=== PATIENT | female | born 1990 | race Caucasian/White ===

== ENCOUNTER 2024-04-06 15:33 | Inpatient (IN) | payer OTHER, MEDICAID ==
[~2024-04-06] VITALS: Ht 160 cm; Wt 77.3 kg
[2024-04-07] VITALS (51 sets, daily range): BP systolic 101–219; BP diastolic 50–149; PULSE 75–123; TEMP 97.6–98.9
--- NOTE | 2024-04-07 07:15 | NUR ---
PT AMBULATORY TO UNIT WITH /FOB. ORIENTED TO LABOR ROOM AND PLAN OF CARE. EFM TRACING CATEGORY 1 UPON ARRIVAL, NO CTX. PT DENIES HAVING CTX, REPORTS POSITIVE MOVEMENT AND DENIES LOF/VAGINAL BLEEDING. MATERNAL VSS. PT APPEARS ANXIOUS, ELEVATED HR UPON ARRIVAL. ALL CONSENTS REVIEWED.
[2024-04-07] MEDS ORDERED: LR & Oxytocin 500 ML IV SCH (07:45)
[2024-04-07] MEDS ORDERED: LR 1,000 ML IV SCH (07:45)
[2024-04-07] MEDS ORDERED: ceFAZolin 2 G in Water For Injection,Sterile 20 ML IV ONE (07:45)
[2024-04-07] MEDS ORDERED: PROFERRIN ES12 MG (07:51)
[2024-04-07] MEDS ORDERED: PRENATAL (07:51)
[2024-04-07 08:10] LABS: BASO # 0.1 K/mm3 (0.0-0.2); BASO % 0.6 % (0.0-2.0); EOS # 0.1 K/mm3 (0.0-0.7); EOS % 0.9 % (0.0-4.0); GRAN # 5.4 K/mm3 (1.4-6.5); GRAN % 66.5 % (42.2-75.2); HEMATOCRIT 29.3 % (37.0-47.0); HEMOGLOBIN 9.5 g/dl (12.5-16.0); LYMPH # 2.1 K/mm3 (1.2-3.4); LYMPH % 26.2 % (20.0-51.0); MEAN CELL VOLUME 96 fl (80.0-100.0); MEAN CORPUSCULAR HEMOGLOBIN 31 pg (27-31); MEAN CORPUSCULAR HGB CONC 32 g/dl (33.0-37.0); MEAN PLATELET VOLUME 10.7 fl (7.4-10.4); MONO # 0.4 K/mm3 (0.1-0.6); MONO % 5.2 % (1.7-9.3); PLATELET COUNT 271 K/mm3 (130-400); RED BLOOD COUNT 3.06 M/mm3 (4.10-5.30); REDCELL DISTRIBUTION WIDTH-CV 14.5 % (11.5-14.5)
--- NOTE | 2024-04-07 09:00 | NUR ---
DR SOLOMON AT BEDSIDE ROUNDING ON PT. DISCUSSES POC. SVE /-2. AROM WITH CLEAR FLUID @ 0900. PT TOLERATED EXAM WELL. CATEGORY 1 EFM TRACING THROUGHOUT. MATERNAL VSS.
--- NOTE | 2024-04-07 09:24 | NUR ---
PT TO SITTING POSITION ON EDGE OF BED FOR EPIDURAL PLACEMENT. DYLAN RASMUSSEN AT BEDSIDE DISCUSSING RISKS, ALL CONSENTS SIGNED. LR BOLUS INFUSING. MATERNAL VSS. ELEVATED HR DUE TO ANXIETY. CATEGORY 1 EFM TRACING PRIOR TO SITTING UP. DIFFICULTY TRACING EFM DUE TO MATERNAL POSITIONING THROUGHOUT PROCEDURE. 0924: SINGLE SHOT PER VALERY RICHARDSON. PT TOLERATED PROCEDURE WELL.
[2024-04-07] MEDS ORDERED: ROPivacaine PF 0.2% 200 ML IV ONE (09:41)
[2024-04-07] MEDS ORDERED: diphenhydrAMINE 50 MG/ML 1 ML VIAL IV PRN (09:45)
[2024-04-07] MEDS ORDERED: Naloxone 0.4 MG/ML VIAL IV PRN ×2 (09:45→19:00)
[2024-04-07] MEDS ORDERED: ePHEDrine 50 MG/10 ML VIAL IV PRN (09:45)
[2024-04-07] MEDS ORDERED: Ondansetron 4 MG/2 ML VIAL IV PRN (09:45)
[2024-04-07] MEDS ORDERED: diphenhydrAMINE 25 MG CAP PO PRN (09:45)
--- NOTE | 2024-04-07 14:21 | NUR ---
PITOCIN CURRENTLY OFF, OXYGEN VIA MASK @ 10L ON PT. FREQUENT POSITION CHANGES DUE TO RECURRENT LATE DECELERATIONS AND TACHYCARDIA. SVE CURRENTLY /-2, BALLOTABLE. BLOODY SHOW. SEE PHYSICIAN NOTIFICATIONS AND ORDERS.
--- NOTE | 2024-04-07 14:43 | NUR ---
EFM TRACING CATEGORY 1 FOLLOWING PITOCIN BREAK AND MATERNAL OXYGEN VIA MASK. CALL TO TO UPDATE ON PT STATUS. SEE PHYSICIAN ORDERS.
[2024-04-07] MEDS ORDERED: ceFAZolin 1 G in Water For Injection,Sterile 10 ML IV SCH (15:45)
--- NOTE | 2024-04-07 17:03 | NUR ---
AT BEDSIDE. SVE /-2. WELL APPLIED. BLOODY SHOW WITH EXAM. PT TOLERATED PROCEDURE WELL. EFM TRACING CATEGORY 1.
--- NOTE | 2024-04-07 18:00 | NUR ---
1800: AT BEDSIDE. SVE COMPLETE, PT FEELS URGE TO PUSH. ROOM PREPARED FOR DELIVERY, ALL APPROPRIATE STAFF NOTIFIED. 1806: OF VIABLE MALE INFANT AT THIS TIME PER . DOUBLE NUCHAL. STRONG CRY NOTED AT DELIVERY. CARE OF ASSUMED BY AGA ELAINE. UPON PULSATION, CORD CLAMPED X2 AND CUT BY FOB. INFANT PLACED ON MATERNAL ABDOMEN. 1808: OF INTACT PLACENTA. PITOCIN BOLUS INFUSING. MATERNAL VITAL SIGNS STABLE. BEGINS REPAIR OF SECOND DEGREE PERINEAL LACERATION. PT TOLERATING REPAIR WELL. VORB FOR CORD GASES AND PLACENTA TO GO TO PATHOLOGY FOR DX: CHORIO. REPORT TO ILDEFONSO Hodgson RN AND ALL ABOVE INFORMATION REVIEWED. ILDEFONSO MARCANO TO CONTINUE WITH ROUTINES.
--- NOTE | 2024-04-07 18:45 | NUR ---
PT WITH ELEVATED BP AT THIS TIME. PT RESTING IN BED HOLDING , ARM BENT WHEN BLOOD PRESSURE WAS OBTAINED. BLOOD PRESSURE CUFF READJUSTED AND RETAKEN WITH AN IMPROVED READING. DR SOLOMON AWARE.
[2024-04-07] MEDS ORDERED: Mag/Al Hydrox/Simeth Susp 30 ML CUP PO PRN (19:00)
[2024-04-07] MEDS ORDERED: Phenylephrine/Mineral Oil/Petrolatum 57 GM TUBE RC PRN (19:00)
[2024-04-07] MEDS ORDERED: Loratadine 10 MG TAB PO PRN (19:00)
[2024-04-07] MEDS ORDERED: Acetaminophen 500 MG TAB PO PRN (19:00)
[2024-04-07] MEDS ORDERED: Ibuprofen 800 MG TAB PO SCH (19:00)
[2024-04-07] MEDS ORDERED: Magnes Hydrox (MOM) 80 MG/ML 30 ML CUP PO PRN (19:00)
[2024-04-07] MEDS ORDERED: MOTRIN 800800 MG/TAB PO (19:00)
[2024-04-07] MEDS ORDERED: oxyCODONE 5 MG TAB PO PRN (19:00)
[2024-04-07] MEDS ORDERED: Measles/Mumps/Rubella Virus Vaccine Live w Diluent 0.5 ML VIAL SQ SCH (19:00)
[2024-04-07] MEDS ORDERED: Witch Hazel 50% Pads Bulk TUB TP PRN (19:00)
[2024-04-07] MEDS ORDERED: traZODone 50 MG TAB PO PRN (21:00)
[2024-04-08 04:00] VITALS: BP 110/65; PULSE 81; TEMP 97.7
[2024-04-08 08:00] VITALS: BP 103/61; PULSE 82; TEMP 98
[2024-04-08] MEDS ORDERED: Sennosides/Docusate 8.6-50 MG TAB PO SCH (08:00)
--- NOTE | 2024-04-08 09:28 | NUR ---
Initial visit; Parents thanked Circular Head Saw Operator for offering congratulations and God's blessings for the of their son. Circular Head Saw Operator thanked Family for choosing [facility] and hopes their stay has been a good one. They comment that they have had a very good experience here with us.
[2024-04-08 11:55] VITALS: BP 111/68; PULSE 88; TEMP 98.2
[2024-04-08 16:59] VITALS: BP 109/64; PULSE 72; TEMP 98.2
[2024-04-08 20:31] VITALS: BP 102/85; PULSE 89; TEMP 98.2
[2024-04-09 08:30] VITALS: BP 116/67; PULSE 70; TEMP 98.8
--- NOTE | 2024-04-09 13:45 | NUR ---
CARE OF PT ASSUMED BY AGA HERNANDES. NURSE TO NURSE REPORT PROVIDED
== END 2024-04-09 17:28 | disposition home or self-care (01) | DRG 807 ==
LOC: LDR 04-07 06:40 → OB 04-07 06:40
PROVIDERS: ADMIT Obstetrics & Gynecology
PROC: 10E0XZZ Delivery of Products of Conception, External Approach (ICD-10-PCS; principal; 2024-04-07)
PROC: 0KQM0ZZ Repair Perineum Muscle, Open Approach (ICD-10-PCS; 2024-04-07)
PROC: 10907ZC Drainage of Amniotic Fluid, Therapeutic from Products of Conception, Via Natural or Artificial Opening (ICD-10-PCS; 2024-04-07)
PROC: 3E033VJ Introduction of Other Hormone into Peripheral Vein, Percutaneous Approach (ICD-10-PCS; 2024-04-07)
DX: O26.643 Intrahepatic cholestasis of pregnancy, third trimester (principal); Z37.0 Single live birth; O99.344 Other mental disorders complicating childbirth; F41.9 Anxiety disorder, unspecified; O99.02 Anemia complicating childbirth; D64.9 Anemia, unspecified; O70.1 Second degree perineal laceration during delivery; O69.81X0 Labor and delivery complicated by cord around neck, without compression, not applicable or unspecified; O99.824 Streptococcus B carrier state complicating childbirth; O76 Abnormality in fetal heart rate and rhythm complicating labor and delivery; E78.79 Other disorders of bile acid and cholesterol metabolism; K76.89 Other specified diseases of liver; Z3A.36 36 weeks gestation of pregnancy
CPT/HCPCS: J0690; J2590; J2795; J7120